=== PATIENT | female | born 1935 | race Caucasian/White ===

== ENCOUNTER → 2022-01-24 17:29 | Outpatient (BNVA) | payer MEDICARE, SELFPAY | PROVIDERS: Visit Provider Family Medicine | DX: R25.2 Cramp and spasm (principal); E78.5 Hyperlipidemia, unspecified | CPT/HCPCS: 80053; 80061; 83735 ==

== ENCOUNTER → 2022-07-23 13:14 | Outpatient (BNVA) | payer MEDICARE, SELFPAY | PROVIDERS: PCP Family Medicine; Visit Provider Family Medicine | DX: E78.2 Mixed hyperlipidemia (principal); B37.2 Candidiasis of skin and nail | CPT/HCPCS: 80061 ==

== ENCOUNTER → 2023-02-26 10:04 | Outpatient (BNVA) | payer MEDICARE, SELFPAY | PROVIDERS: PCP Family Medicine; Visit Provider Nurse Practitioner Family | DX: S69.92XA Unspecified injury of left wrist, hand and finger(s), initial encounter (principal); X50.3XXA Overexertion from repetitive movements, initial encounter; M19.032 Primary osteoarthritis, left wrist | CPT/HCPCS: 73110 ==

== ENCOUNTER → 2023-07-16 13:20 | Outpatient (BNVA) | payer MEDICARE, SELFPAY | PROVIDERS: PCP Family Medicine; Visit Provider Family Medicine | DX: Z13.1 Encounter for screening for diabetes mellitus (principal); E78.2 Mixed hyperlipidemia | CPT/HCPCS: 80053; 80061 ==

== ENCOUNTER 2023-09-25 10:27 | Emergency (ER) | payer MEDICARE, SELFPAY ==
[2023-09-25 10:32] VITALS: BP 143/84; PULSE 66; RESP 18; TEMP 37; O2SAT 96; BMI 28.1
[2023-09-25 10:48] LABS: Glucose Point of Care 99 mg/dL (70-110)
--- NOTE | 2023-09-25 10:59 | XRR_ITS ---
PROCEDURE INFORMATION: Exam: XR Chest Exam date and time: 09/25/2023 11:14 AM Age: 87 years old Clinical indication: Other: Altered mental status resolved TECHNIQUE: Imaging protocol: Radiologic exam of the chest. Views: 1 view. COMPARISON: No relevant prior studies available. FINDINGS: Lungs: Unremarkable. No consolidation. Pleural spaces: Unremarkable. No pleural effusion. No pneumothorax. Heart/Mediastinum: Unremarkable. No cardiomegaly. Bones/joints: Unremarkable. XR/XR chest 1V portable [id number] IMPRESSION: No acute findings.
--- NOTE | 2023-09-25 10:59 | CT_ITS ---
WS: [id number] CT HEAD TECHNIQUE: Noncontrast CT of the head obtained from the skullbase to the vertex. CLINICAL INFORMATION: TIA like symptoms COMPARISON: None. DLP: 993.[address] scans at [facility] use at least one of these dose optimization techniques: automated e xposure control; mA and/or kV adjustment per patient size (includes targeted exams where dose is matc hed to clinical indication); or iterative reconstruction. FINDINGS: No evidence of intracranial hemorrhage or mass effect. Ventricular system and basal cisterns are feliciano nt. Mild small vessel changes with moderate parenchymal volume loss. Cavernous carotid calcification. No extra-axial fluid collections. No evidence of mass or mass effect. Paranasal sinuses and mastoid air cells are well aerated. .Normal visualized soft tissues. CT/CT head wo con* [id number] IMPRESSION: 1. No evidence of intracranial hemorrhage or mass effect. 2. Mild small vessel changes. Moderate parenchymal volume loss. 3. Vascular calcification. 4. No acute intracranial findings.
--- NOTE | 2023-09-25 11:01 | ECG_ITS ---
[facility] Test Date: 2023-09-25 Pat Name: Rudi Arango Department: Room: Gender: Female Turner Machine: : 1935 Requested By: Andriy Jameson Order Number: [id number] Garth MD: Anju Nelson M.D. Measurements Intervals [place] Rate: 68 P: 44 VT: 155 QRS: -5 QRSD: 88 T: 24 QT: 395 QTc: 420 Interpretive Statements SINUS RHYTHM WITH OCCASIONAL SUPRAVENTRICULAR PREMATURE COMPLEXES POSSIBLE RIGHT VENTRICULAR CONDUCTION DELAY [RSR (QR) IN V1/V2] No previous ECG available for comparison Electronically Signed On 09-25-2023 22:00:21 CDT by Anju Nelson M.D. [id number]
--- NOTE | 2023-09-25 11:05 | ED_ITS ---
HPI - General Adult 2 General: Chief complaint: General Medical Stated complaint: ams Time Seen by Provider: 09/25/23 10:45 History of Present Illness: 87 year old female presents to the ER with a chief complaint of having an episode of difficulty with word finding and mild confusion while at [employer] on Friday patient reports she had not eaten breakfast reports that she she was craving some sugar in which after eating a candy bar her symptoms rapidly resolved patient endorses a prior history of cholesterol issues reports no prior history of strokes or TIAs she does not endorse any history of high blood pressure or diabetes patient presents to the ER with her family present for further assessment and management patient does endorse generalized malaise and fatigue over last couple of days with no focal weakness. Associated symptoms: Reports confusion; Deny chest pain, dyspnea, headache(s), malaise, nausea, rash, palpitations or vomiting Review of Systems 2 General: Reports: 10 or more systems reviewed and unremarkable except in HPI and below Const: Denies: fever(s), chills, fatigue or malaise Eyes: Denies: change in vision or blurry vision Card: Denies: chest pain or palpitations Resp: Denies: dyspnea or productive cough GI: Denies: abdominal pain, nausea or vomiting : Denies: flank pain Musc: Denies: extremity pain or extremity swelling Skin/Breast: Denies: rash or pruritus Neuro: Reports: confusion, Slurred speech present and other (Difficulty with word finding); Denies: headache(s) Psych: Denies: anxiety or depression Lenny/Lymph: Denies: easy bleeding All/Imm: Denies: urticaria, throat swelling or facial swelling PFSH ED 2 PFSH: Surgical History History of appendectomy Family History Mother Alzheimer disease Social History Smoking and tobacco/nicotine status: never used tobacco/nicotine Female Reproductive History: Spontaneous abortions: No Physical Exam 2 Narrative: EXAM NARRATIVE: No obvious focal neurodeficit appreciated GCS is 15 NIH is 0 Const: COMMON NORMALS: no acute distress, patient oriented x3 and healthy appearing HENMT: COMMON NORMALS: normocephalic and atraumatic HEAD & SCALP: n ormocephalic and atraumatic Eye: COMMON NORMALS: Equal, round and reactive pupils present and EOMs intact bilaterally PUPIL: Yes Equal, round and reactive pupils present Neck/C-Spine: COMMON NORMALS: full ROM, supple and no JVD Lymph: LYMPHATIC: no lymphadenopathy noted Chest: COMMONS NORMALS: normal inspection of the chest and normal palpation of entire chest wall Resp: COMMON NORMALS: normal respiratory effort, No retractions and clear to auscultation bilaterally EFFORT & INSPECTION: Yes able to speak in complete sentences and Yes symmetric chest movement AUSCULTATION: clear to auscultation bilaterally Cardio: COMMON NORMALS: no JVD, regular rate and regular rhythm RATE: r egular rate RHYTHM: regular rhythm GI: COMMON NORMALS: Normal to inspection, nondistended, normoactive bowel sounds present, Soft to palpation and non-tender INSPECTION: Yes normal to inspection PALPATION: Yes Soft to palpation : COMMON NORMALS: Yes no CVA tenderness BLADDER/KIDNEY EXAM: Yes no CVA tenderness Back/Pelvis: COMMON NORMALS: no CVA tenderness Extremity: COMMON NORMALS: normal to inspection and full ROM Neuro: COMMON NORMALS: patient oriented x3, CN's II-XII intact bilaterally, moves all extremities and no focal motor deficits Psych: COMMON NORMALS: mental status grossly normal, Normal thought process present, cooperative and normal affect THOUGHT PROCESS: Normal thought process present Skin: COMMON NORMALS: no rashes or lesions noted GENERAL SKIN EXAM: no rashes or lesions noted Course 2 Vital Signs: Vital signs: Vital Signs Temperature 98.6 F 09/25/23 10:32 Pulse Rate 66 09/25/23 10:32 Respiratory Rate 18 09/25/23 10:32 Blood Pressure 143/84 09/25/23 10:32 Pulse Oximetry 96 09/25/23 10:32 Oxygen Delivery Me thod Room Air 09/25/23 10:32 [facility] - General Adult Medical Decision Making Due to patient sent to the [facility] and an IV was established basic lab work and imaging obtained TIA workup will be obtained this could been a TIA versus hypoglycemia versus other event we will continue to follow Lab work imaging came back reassuring patient is stable for discharge home it is unclear whether or not patient had a TIA earlier not did advise the patient and there is no contraindications against it to start on a babied aspirin daily did advise that she further follow-up with primary care in 2 to 3 days in which to return the interim if any of her symptoms persist or worse. Lab Data 09/25/23 11:12 09/25/23 11:12 Radiology Impressions Chest X-Ray 09/25/23 10:59 IMPRESSION: No acute findings. Head CT 09/25/23 10:59 IMPRESSION: 1. No evidence of intracranial hemorrhage or mass effect. 2. Mild small vessel changes. Moderate parenchymal volume loss. 3. Vascular calcification. 4. No acute intracranial findings. Laboratory Results WBC 7.80 10^3/uL (3.29-11.43) 09/25/23 11:12 RBC 4.57 10^6/uL (3.85-5.65) 09/25/23 11:12 Hgb 14.70 g/dL (11.27-16.99) 09/25/23 11:12 Hct 44.3 % (36-47) 09/25/23 11:12 MCV 96.9 fl (85-98) 09/25/23 11:12 MCH 32.2 pg (27-33) 09/25/23 11:12 MCHC 33.2 g/dL (30-55) 09/25/23 11:12 RDW 12.6 % (12.1-15.1) 09/25/23 11:12 Plt Count 251 10^3/cmm (157-399) 09/25/23 11:12 MPV 8.5 fL (7.4-10.4) 09/25/23 11:12 Neut % (Auto) 62.5 % 09/25/23 11:12 Lymph % (Auto) 27.2 % 09/25/23 11:12 [place] % (Auto) 6.9 % 09/25/23 11:12 Eos % (Auto) 2.7 % 09/25/23 11:12 Baso % (Auto) 0.4 % 09/25/23 11:12 Neut # (Auto) 4.88 10^3/uL (1.8-7.7) 09/25/23 11:12 Lymph # (Auto) 2.1 10^3/uL (0.8-4.8) 09/25/23 11:12 [place] # (Auto) 0.5 10^3/uL (0.2-0.9) 09/25/23 11:12 Eos # (Auto) 0.2 10^3/uL (0.0-0.8) 09/25/23 11:12 Baso # (Auto) 0.0 10^3/uL (0.0-0.1) 09/25/23 11:12 Nucleated RBC % (auto) 0 % 09/25/23 11:12 Nucleated RBCs # 0.0 /100WBC 09/25/23 11:12 PT 12.90 SECONDS (12.1-14.9) 09/25/23 11:12 INR 0.95 (0.8-1.2) 09/25/23 11:12 APTT 23.8 SECONDS (23.9-36.7) L 09/25/23 11:12 Sodium 143 mmol/L (136-145) 09/25/23 11:12 Potassium 4.4 mmol/L (3.5-5.1) 09/25/23 11:12 Chloride 106 mmol/L (98-107) 09/25/23 11:12 Carbon Dioxide 27 mmol/L (22-29) 09/25/23 11:12 Anion Gap 14.4 (5-19) 09/25/23 11:12 BUN 14 mg/dL (8-23) 09/25/23 11:12 Creatinine 0.7 mg/dL (0.5-0.9) 09/25/23 11:12 GFR Calculation Not Reportable 09/25/23 11:12 Glucose 84 mg/dL (65-115) 09/25/23 11:12 POC Glucose 94 mg/dL (70-110) 09/25/23 13:54 Calculated Osmolality 296 mOsm/kg (285-295) H 09/25/23 11:12 Calcium 10.3 mg/dL (8.5-10.5) 09/25/23 11:12 Total Bilirubin 0.3 mg/dL (0.15-1.2) 09/25/23 11:12 AST 20 U/L (0-32) 09/25/23 11:12 ALT 17 U/L (0-33) 09/25/23 11:12 Alkaline Phosphatase 100 U/L (35-105) 09/25/23 11:12 Troponin T Baseline 10 ng/L (0-10) 09/25/23 11:12 Troponin T 120 Minute 9.27 ng/L (0-10) 09/25/23 13:12 Delta Troponin T -0.73 ABS# (0-10) L 09/25/23 13:12 NT-Pro-B Natriuret Pep 195 pg/mL (0-450) 09/25/23 11:12 Total Protein 6.4 g/dL (6.6-8.7) L 09/25/23 11:12 Albumin 4.3 g/dL (3.5-5.2) 09/25/23 11:12 Globulin 2.1 g/dL (1.3-4.6) 09/25/23 11:12 Urine Color Yellow (Yellow) 09/25/23 12:33 Urine Appearance Clear (CLEAR) 09/25/23 12:33 Urine pH 7 (5-7) 09/25/23 12:33 Ur Specific [place] 1.015 (1.005-1.030) 09/25/23 12:33 Urine Protein Neg (Negative) 09/25/23 12:33 Urine Glucose (UA) Norm (Normal) 09/25/23 12:33 Urine Ketones 1+ (Negative) H 09/25/23 12:33 Urine Blood Neg (Negative) 09/25/23 12:33 Urine Nitrate Negative (Negative) 09/25/23 12:33 Urine Bilirubin Neg (Negative) 09/25/23 12:33 Urine Urobilinogen Neg mg/dL (Negative) 09/25/23 12:33 Ur Leukocyte Esterase Trace (Negative) H 09/25/23 12:33 Urine RBC 0-4 /hpf (0-2) H 09/25/23 12:33 Urine WBC 0-4 /hpf (0-5) H 09/25/23 12:33 Ur Squamous Epith Cells 0-4 /hpf (0-5) H 09/25/23 12:33 Ur Transition Epith Cell 0-4 /hpf 09/25/23 12:33 Amorphous Sediment Not Reportable 09/25/23 12:33 Urine Bacteria Trace /hpf (NONE) 09/25/23 12:33 Urine Mucus Trace /hpf 09/25/23 12:33 All radiology interpretation(s) finalized by discharge EKG Data Normal sinus rhythm rate of [address] segment elevations or depressions appreciated: Computer generated interpretation: Chest X-Ray 09/25/23 10:59 IMPRESSION: No acute findings. Head CT 09/25/23 10:59 IMPRESSION: 1. No evidence of intracranial hemorrhage or mass effect. 2. Mild small vessel changes. Moderate parenchymal volume loss. 3. Vascular calcification. 4. No acute intracranial findings. Discharge Plan Discharge Patient Disposition: Home Clinical Impression: Altered mental status Qualifiers: Altered mental status type: transient alteration of awareness Qualified Code(s): R40.4 - Transient alteration of awareness Condition: Stable Prescriptions: No Action Aspir-81 81 mg Tablet,Delayed Release (Dr/Ec) 81 mg PO QPM CoQ-10 100 mg Capsule 100 mg PO QPM Fish Oil 1,000 mg (120 mg-180 mg) Capsule 1 cap PO QPM atorvastatin 10 mg tablet 10 mg PO QPM Vytorin 10-10 10-10 mg tablet 1 tab PO QPM Discharge Orders: Discharge ED (Routine); Ordered 09/25/23 Ordered By: Andriy Jameson Referrals: Kisha Aguila MD [Primary Care Provider] - 4-7 days Patient Instructions: Hypoglycemia, Altered Mental Status (ED), Disorders of Consciousness (DC), TIA Activity Restrictions/Additional Instructions: It is recommended for you to take a baby aspirin daily for the follow-up your primary care doctor in 3 to 5 days in which to return the interim if any of your symptoms persist or worse. Coding Level of Care Code ED Gluer Machine Operator for Benjamin Gomez
[2023-09-25 11:22] LABS: Basophils % 0.4 %; Eosinophils # 0.2 10^3/uL (0.0-0.8); Eosinophils % 2.7 %; Hematocrit 44.3 % (36-47); Lymphocytes # 2.1 10^3/uL (0.8-4.8); Lymphocytes % 27.2 %; Mean Corpuscular HGB Conc 33.2 g/dL (30-55); Mean Corpuscular Hemoglobin 32.2 pg (27-33); Mean Corpuscular Volume 96.9 fl (85-98); Mean Platelet Volume 8.5 fL (7.4-10.4); Monocytes # 0.5 10^3/uL (0.2-0.9); Monocytes % 6.9 %; Neutrophils # 4.88 10^3/uL (1.8-7.7); Neutrophils % 62.5 %; Nucleated Red Blood Cells % 0 %; Platelet Count 251 10^3/cmm (157-399); Red Blood Count 4.57 10^6/uL (3.85-5.65); Red Cell Distribution Width 12.6 % (12.1-15.1)
[2023-09-25] MEDS: sodium chloride 0.9% 500 ML IV (11:23)
[2023-09-25 11:36] LABS: INR 0.95 (0.8-1.2)
[2023-09-25 11:37] LABS: Partial Thromboplastin Time 23.8 SECONDS (23.9-36.7)
[2023-09-25 11:42] LABS: Troponin(5th) Baseline 10 ng/L (0-10)
[2023-09-25 11:53] LABS: Alanine Aminotransferase 17 U/L (0-33); Albumin Level 4.3 g/dL (3.5-5.2); Alkaline Phosphatase 100 U/L (35-105); Anion Gap 14.4 (5-19); Aspartate Amino Transferase 20 U/L (0-32); Blood Urea Nitrogen 14 mg/dL (8-23); Calcium 10.3 mg/dL (8.5-10.5); Carbon Dioxide 27 mmol/L (22-29); Chloride 106 mmol/L (98-107); Creatinine Clr Calc Pharmacy 47.0756; Globulin 2.1 g/dL (1.3-4.6); Glucose 84 mg/dL (65-115); NT Pro B Type Natriuretic Pept 195 pg/mL (0-450); Osmolality Calculated 296 mOsm/kg (285-295); Potassium 4.4 mmol/L (3.5-5.1); Sodium 143 mmol/L (136-145); Total Bilirubin 0.3 mg/dL (0.15-1.2); Total Protein 6.4 g/dL (6.6-8.7)
[2023-09-25 13:08] LABS: Add Urine Microscopic? YES; Bilirubin Urine Neg (Negative); Blood Urine Neg (Negative); Glucose Urine UA Norm (Normal); Ketones Urine 1+ (Negative); Leukocyte Esterase Urine Trace (Negative); Nitrate Urine Negative (Negative); Protein Urine Neg (Negative); Specific Gravity, Urine 1.015 (1.005-1.030); Urine Appearance Clear (CLEAR); Urine Color Yellow (Yellow); Urobilinogen Urine Neg (Negative); pH Urine 7 (5-7)
[2023-09-25 13:09] LABS: Add Urine Culture? No; Bacteria Urine TRACE /hpf; Mucus Urine TRACE /hpf; RBC Urine 0-4 /hpf (0-2); Squamous Epithelial Cell Urine 0-4 /hpf (0-5); Transitional Epi Cells Urine 0-4 /hpf; WBC Urine 0-4 /hpf (0-5)
--- NOTE | 2023-09-25 13:20 | ECG_ITS ---
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 Measurements Intervals [place] Rate: 58 P: 79 MN: 167 QRS: -1 QRSD: 90 T: 21 QT: 426 QTc: 422 Interpretive Statements SINUS BRADYCARDIA POSSIBLE RIGHT VENTRICULAR CONDUCTION DELAY [RSR (QR) IN V1/V2] Compared to ECG 09/25/2023 10:33:12 Sinus rhythm no longer present Electronically Signed On 09-25-2023 22:10:55 CDT by Anju Nelson M.D. [id number]
[2023-09-25 13:42] LABS: Troponin 5 2HR 9.27 ng/L (0-10)
[2023-09-25 13:43] LABS: Troponin 5 2HR Delta -0.73 ABS# (0-10)
[2023-09-25 13:58] LABS: Glucose Point of Care 94 mg/dL (70-110)
[2023-09-25 14:38] VITALS: PULSE 62; O2SAT 98
== END 2023-09-25 15:04 | disposition home or self-care (01) ==
PROVIDERS: Emergency Provider Emergency Medicine; PCP Family Medicine
DX: R40.4 Transient alteration of awareness (principal); Z79.82 Long term (current) use of aspirin
CPT/HCPCS: 36415; 36416; 70450; 71045; 80053; 81001; 82962; 83880; 84484; 85025; 85610; 85730; 93005; 99285; J7040